=== PATIENT | female | born 1985 | race Caucasian/White ===

== ENCOUNTER → 2021-10-11 | Outpatient (CLI) | payer BC ==
--- NOTE | 2021-10-11 17:21 | Diagnostic Imaging Report ---
Indication: Palpable fullness in the upper outer right breast. No prior mammograms are available for comparison. 2-D and 3-D unilateral right diagnostic mammography was performed with CAD. Right breast is heterogeneously dense, limiting sensitivity of mammography. BB marker was placed at the area of palpable abnormality. No underlying mass is detected. No malignant-appearing microcalcifications are seen. Right axilla is unremarkable. IMPRESSION: BI-RADS Category 0 No mammographic features suspicious for malignancy are identified. Even so, directed sonographic interrogation of the area of palpable fullness in the upper outer right breast is recommended and will be performed today. ACR BI-RADS Category 0: Incomplete. (Needs additional imaging evaluation). Result letter will be mailed to the patient. Note: At least 10% of breast cancer is not imaged by mammography. Dictated by: Dictated on workstation # [id number]
--- NOTE | 2021-10-11 17:26 | Diagnostic Imaging Report ---
Indication: Lump in the upper outer right breast. Correlation is made with diagnostic mammogram earlier same day. Sonographic interrogation in the area of fullness in the upper outer right breast was performed. No sonographic abnormality is identified. No solid or cystic mass is detected. IMPRESSION: BI-RADS Category 1 No sonographic abnormality is identified. ACR BI-RADS Category 1: Negative. Result letter will be mailed to the patient. Note: At least 10% of breast cancer is not imaged by mammography. Dictated by: Dictated on workstation # [id number]
== END ==
LOC: RAD 13:38
PROVIDERS: ATTEND Family Medicine
DX: N63.11 Unspecified lump in the right breast, upper outer quadrant (principal)
CPT/HCPCS: 76642; 77065; G0279

== ENCOUNTER → 2022-01-13 | Outpatient (CLI) | payer BC ==
--- NOTE | 2022-01-13 17:35 | Diagnostic Imaging Report ---
INDICATION: Pain. 3 views of the right shoulder were obtained. FINDINGS: The alignment is normal. There is no fracture or dislocation. Right lung is clear. Soft tissues are unremarkable. IMPRESSION: No focal abnormality in the right shoulder. Dictated by: Dictated on workstation # [id number]
== END ==
LOC: RAD 17:12
PROVIDERS: ATTEND Nurse Practitioner Family
DX: M25.511 Pain in right shoulder (principal)
CPT/HCPCS: 73030

== ENCOUNTER → 2022-01-27 | Outpatient (CLI) | payer BC ==
--- NOTE | 2022-01-27 11:31 | Diagnostic Imaging Report ---
PROCEDURE: MRI right joint upper extremity without contrast. TECHNIQUE: Multiplanar, multisequence non contrast-enhanced MRI of the right upper extremity was accomplished. INDICATION: Right shoulder pain. No specific injuries. EXAMINATION: Right shoulder MRI without contrast 01/27/2022. FINDINGS: The supraspinatus and infraspinatus tendons intact. The subscapularis tendon intact. The long head of the biceps tendon is intact and lies within bicipital groove. The biceps tendon anchor is intact. There is linear high signal undermining the anterior labrum best seen on axial imaging possibly sub-labral sulcus. No displaced tear is appreciated. If there are symptoms suggestive of a labral tear post-arthrogram imaging could provide further characterization as clinically indicated. There is no acute osseous abnormality. There is minimal fluid in the subdeltoid subacromial bursa which could be due to a mild bursitis. Muscle volume is preserved. Visualized axilla unremarkable. IMPRESSION: 1. Rotator cuff intact 2. Biceps tendon intact 3. High signal undermining the anterior labrum on axial imaging possibly a sublingual sulcus. However, if there are symptoms suggestive of a labral tear post-arthrogram imaging could better characterize for possible labral tear as clinically indicated. 4. Findings of mild bursitis along the subdeltoid subacromial bursa. Dictated by: Dictated on workstation # [id number]
== END ==
LOC: RAD 08:17
PROVIDERS: ATTEND Nurse Practitioner Family
DX: M75.51 Bursitis of right shoulder (principal); M25.511 Pain in right shoulder
CPT/HCPCS: 73221

== ENCOUNTER 2022-11-13 07:10 | Emergency (ER) | payer BC ==
[~2022-11-13] VITALS: Ht 158 cm; Wt 68.0 kg
--- NOTE | 2022-11-13 07:35 | ED Abdominal Pain ---
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 Pain seems to focus in her right flank and woke her from sleep at about 130 this morning. Its been constant since onset and is described as sharp and stabbing. It does sometimes seem to radiate to her right anterior leg as well. She has had no abdominal surgery. No medical comorbidities. Normal bowel movements and urine output. Last menstrual cycle was 3 weeks ago normal for her. She has an IUD and denies that she could be . Fevers chills nausea or vomiting. All other systems reviewed and negative except documented per HPI. Voice recognition software was used to help create this chart Allergies and Home Medications Allergies Coded Allergies: No Known Drug Allergies (Unverified , 11/13/22) Patient Home Medication List Home Medication List Reviewed: Yes Review of Systems Review of Systems Constitutional: see HPI Past Qlxeiyq-Yxugha-Kjeoqt Hx Patient Social History Tobacco Use?: No Use of E-Cig and/or Vaping dev: No Substance use?: No Alcohol Use?: No Past Medical History Last Menstrual Period: Oct 23, 2022 Physical Exam Vital Signs Vital Signs - First Documented 11/13/22 07:23 Temp 36.3 Pulse 60 Resp 18 B/P (MAP) 136/93 (107) Pulse Ox 100 O2 Delivery Room Air Capillary Refill : Less Than 3 Seconds Height/Weight/BMI Height: '" Weight: lbs. oz. kg; 27.00 BMI Method: General Appearance: WD/WN, no apparent distress HEENT: normal ENT inspection, pharynx normal Neck: non-tender Respiratory: chest non-tender, lungs clear, normal breath sounds, no respiratory distress, no accessory muscle use Cardiovascular: regular rate, rhythm, no murmur Gastrointestinal: normal bowel sounds, non tender, soft, no organomegaly Extremities: normal range of motion, non-tender, normal inspection, normal capillary refill Back: no vertebral tenderness, CVA tenderness (R) Neurologic/Psychiatric: alert, oriented x 3 Skin: normal color, warm/dry Progress/Results/Core Measures Results/Orders Lab Results Laboratory Tests Test 11/13/22 07:40 Range/Units My Orders Orders - ELAINESIMI Leal Comprehensive Metabolic Panel (11/13/22 07:31) Lipase (11/13/22 07:31) Ua Culture If Indicated (11/13/22 07:31) Urine Bedside (11/13/22 07:31) Ct Abd/Pelvis Wo(Kidney Stone) (11/13/22 07:31) Cbc With Automated Diff (11/13/22 07:31) Ed Iv/Invasive Line Start (11/13/22 07:31) Ketorolac Injection (Ketorolac Injection (11/13/22 07:45) Medications Given in ED Current Medications Medications Dose Ordered Sig/Aunsha Route Start Time Stop Time Status Last Admin Dose Admin Ketorolac Tromethamine 15 mg ONCE ONCE IVP 11/13/22 07:45 11/13/22 07:46 DC 11/13/22 07:43 15 MG Vital Signs/I&O 11/13/22 11/13/22 07:23 07:43 Temp 36.3 36.3 Pulse 60 Resp 18 B/P (MAP) 136/93 (107) Pulse Ox 100 O2 Delivery Room Air Blood Pressure Mean: 107 Departure Communication (Admissions) Patient is hemodynamically stable. Her pain is controlled after Toradol, fentanyl with fentanyl having helped more. She is no fever. Her urine shows some blood with some bacteria but no nitrite or leukocyte esterace. She has no leukocytosis. I do not think she likely has a urinary tract infection at this time. She does appear to have a small kidney stone at the ureterovesicular junction on CT scan. There is no evidence for acute appendicitis. She does have some mild hydroureter as well. Urine test is negative. Chemistry is remarkable for only slight elevation in total bilirubin. She is resting comfortably in the bed and rates her pain as a 2/10 currently. She is comfortable with discharge and close follow-up. Impression Primary Impression: Ureterolithiasis Additional Impression: Renal colic on right side Disposition: 01 HOME, SELF-CARE Condition: Stable Departure-Patient Inst. Referrals: JOSE ANGEL VASQUEZ DO (PCP/Family) Primary Care Physician Patient Instructions: Kidney stones in adults Add. Discharge Instructions: Please take the pain medication as prescribed as needed. The hydrocodone may make you drowsy. It can also cause constipation so I recommend you take a stool softener while taking this medication. The Toradol as an anti-inflammatory medicine, do not take any other anti-inflammatory medicine such as Motrin ibuprofen or Aleve while taking this. Use the Flomax as prescribed for the next couple of days. Increase your fluids at home and rest. Return to the emergency department for any severe pain is not controlled by pain medications or if your symptoms change in any way concerning to you. Please take the antibiotics as prescribed until they are gone as he did have some bacteria in your urine as well. All discharge instructions reviewed with patient and/or family. Voiced understanding. Scripts Cephalexin (Cephalexin) 500 Mg Tablet 500 MG PO BID for 5 Days, #10 TAB Prov: SIMI HENRY DO 11/13/22 Tamsulosin HCl (Flomax) 0.4 Mg Cap 0.4 MG PO DAILY for 3 Days, #3 CAP Prov: SIMI HENRY DO 11/13/22 Ketorolac Tromethamine (Ketorolac Tromethamine) 10 Mg Tablet 10 MG PO TID for Pain for 3 Days, #9 TAB Prov: SIMI HENRY DO 11/13/22 Hydrocodone/Acetaminophen (Hydrocodone-Acetamin 5-325 mg) 5 Mg-325 Mg Tablet 1 TAB PO Q4H PRN for PAIN-MODERATE (5-7) for 3 Days, #12 TAB Prov: SIMI HENRY DO 11/13/22 SIMI HENRY DO Nov 13, 2022 07:35
[2022-11-13] MEDS ORDERED: KETOROLAC INJ 15 MG/ML VIAL IVP ONE (07:45)
[2022-11-13 07:49] LABS: BASOPHILS % (AUTO) 0 % (0-10); EOSINOPHILS # (AUTO) 0.1 10^3/uL (0.0-0.3); EOSINOPHILS % (AUTO) 1 % (0-10); HEMATOCRIT 46 % (35-52); HEMOGLOBIN 15.3 g/dL (11.5-16.0); LYMPHOCYTES # (AUTO) 1.3 10^3/uL (1.0-4.0); LYMPHOCYTES % (AUTO) 23 % (12-44); MEAN CORPUSCULAR HEMOGLOBIN 30 pg (25-34); MEAN CORPUSCULAR HGB CONC 33 g/dL (32-36); MEAN CORPUSCULAR VOLUME 91 fL (80-99); MONOCYTES # (AUTO) 0.3 10^3/uL (0.0-1.0); MONOCYTES % (AUTO) 6 % (0-12); NEUTROPHILS # (AUTO) 3.8 10^3/uL (1.8-7.8); NEUTROPHILS % (AUTO) 69 % (42-75); PLATELET COUNT 215 10^3/uL (130-400); WHITE BLOOD COUNT 5.6 10^3/uL (4.3-11.0)
[2022-11-13 07:57] LABS: ALBUMIN 4.8 GM/DL (3.2-4.5); CHLORIDE 107 MMOL/L (98-107); POTASSIUM 4.2 MMOL/L (3.6-5.0); SODIUM 138 MMOL/L (135-145)
[2022-11-13 07:59] LABS: CALCIUM 9.7 MG/DL (8.5-10.1)
[2022-11-13 08:00] LABS: GLUCOSE 97 MG/DL (70-105); TOTAL PROTEIN 7.8 GM/DL (6.4-8.2)
[2022-11-13 08:01] LABS: CARBON DIOXIDE 18 MMOL/L (21-32)
[2022-11-13 08:02] LABS: BILIRUBIN,TOTAL 1.5 MG/DL (0.1-1.0)
[2022-11-13 08:03] LABS: ALKALINE PHOSPHATASE 42 U/L (40-136); CREATININE SERUM 0.96 MG/DL (0.60-1.30); GFR ESTIMATED 79
[2022-11-13 08:05] LABS: BUN/CREATININE RATIO 22
[2022-11-13 08:06] LABS: ALANINE AMINOTRANSFERASE 14 U/L (0-55)
[2022-11-13 08:07] LABS: LIPASE 34 U/L (8-78)
[2022-11-13 08:11] LABS: CLARITY,URINE CLEAR; COLOR,URINE YELLOW
[2022-11-13 08:21] LABS: PH,URINE 5.5 (5-9)
[2022-11-13 08:22] LABS: BILIRUBIN,URINE 1+ (NEGATIVE); GLUCOSE, URINE (UA) NEGATIVE (NEGATIVE); KETONES,URINE 1+ (NEGATIVE); LEUKOCYTE ESTERASE ,URINE NEGATIVE (NEGATIVE); NITRITE,URINE NEGATIVE (NEGATIVE); PROTEIN,URINE TRACE (NEGATIVE)
[2022-11-13 08:23] LABS: BACTERIA,URINE MODERATE /HPF; RBC,URINE RARE /HPF; WBC,URINE 0-2 /HPF
--- NOTE | 2022-11-13 08:44 | Diagnostic Imaging Report ---
PROCEDURE: CT urinary tract, rule out kidney stone. TECHNIQUE: Multiple contiguous axial images were obtained through the abdomen and pelvis without the use of intravenous contrast. Auto Exposure Controls were utilized during the CT exam to meet ALARA standards for radiation dose reduction. INDICATION: Right lower quadrant abdominal pain Noncontrast CT images of liver and spleen are unremarkable. No pancreatic, gallbladder or adrenal gland abnormality is identified. Minimal punctate nephrolithiasis is present bilaterally. There is mild right hydronephrosis and right hydroureter. There is an approximately 0.2 cm calcification in the right pelvis which may be within or adjacent to the distal right ureter just above the ureterovesical junction. Note is made of mild pelvic free fluid. No organized fluid collection is seen to indicate an abscess. There is no evidence of bladder stone. Intrauterine device is present in the expected location. The uterus is retroverted. IMPRESSION: Minimal bilateral nephrolithiasis with possible 0.2 cm distal right ureteric stone. There is mild right hydronephrosis without other evidence of acute abnormality in the abdomen or pelvis. Mild pelvic free fluid may be physiologic. Dictated by: Dictated on workstation # [id number]
[2022-11-13] MEDS ORDERED: fentaNYL INJECTION 100 MCG/2 ML VIAL IVP ONE (08:45)
[2022-11-13] MEDS ORDERED: CEPH500T PO (09:00)
[2022-11-13] MEDS ORDERED: ACHD5005 PO (09:00)
[2022-11-13] MEDS ORDERED: TMSL.4C PO (09:00)
[2022-11-13] MEDS ORDERED: KETO10TA PO (09:00)
[2022-11-13] MEDS ORDERED: HYDROcodone/ACETAMINOPHEN 5 MG/325 MG TABLET PO ONE (09:00)
[2022-11-13 09:10] VITALS: BP 136/93
== END 2022-11-13 09:09 | disposition home or self-care (01) ==
LOC: EDUNIT# 07:10 → ER 07:12
DX: N13.2 Hydronephrosis with renal and ureteral calculous obstruction (principal)
CPT/HCPCS: 36415; 74176; 80053; 81000; 83690; 84703; 85025; 87088